=== PATIENT | female | born 2000 | race Caucasian/White ===

== ENCOUNTER 2023-07-14 19:02 | Emergency (ER) | payer OTHER, SELFPAY ==
[2023-07-14 19:16] VITALS: BP 135/80; PULSE 100; RESP 18; TEMP 36.5; O2SAT 100
--- NOTE | 2023-07-14 19:29 | ED.GENADULT ---
[facility] - General Adult General Chief complaint: Wound/Laceration Stated complaint: Left thumb laceration Time Seen by Provider: 07/14/23 19:16 Source: patient Mode of arrival: ambulatory Limitations: no limitations History of Present Illness HPI narrative: this is a 22-year-old female who presents to the ED with chief complaint of laceration to the left hand. She was cutting a box with a large knife today when it accidentally slipped and came back into the home /crease of the left hand between the thumb and index finger. Reports a lot of bleeding at that time. denies any further complaints Related Data Home Medications Medication Instructions Recorded Confirmed Daily 1 tab-cap PO DAILY 08/08/19 08/14/19 Allergies Allergy/AdvReac Type Severity Reaction Status Date / Time No Known Allergies Allergy Unknown Verified 07/14/23 19:03 Review of Systems Review of Systems: All systems as dictated in [facility] Social History Social History Smoking status: Never smoker Substance use: never Gender identity (if verbalized by the patient): Female Spiritual care concerns: No Exam Narrative: GENERAL: Well-appearing, well-nourished, and in no acute distress. HEAD: Normocephalic, atraumatic. EYES: PERRLA and EOMI. ENT: Nares clear, no rhinorrhea or epistaxis. Mucous membranes moist. Oropharynx without tonsillar hypertrophy exudate or other lesions. NECK: Supple. No adenopathy or masses. CHEST: No respiratory distress. Clear to auscultation. No wheezes rales or rhonchi HEART: Regular rate and rhythm. No murmur heard. Normal peripheral pulses. ABDOMEN: Soft, nontender, nondistended, normal active bowel sounds. MSK: Left hand: Unable to flex the thumb distally at the Interphalangeal joint. Sensation intact distally. Cap refill intact. Neurovascularly intact distally. Right hand benign. SKIN: There is a deep 5 cm laceration to the palmar aspect of the left thumb extending it into the crease in between thumb and index finger. There seems to be tendon involvement. NEURO: Alert and oriented x3. No focal deficits. PSYCH: Normal mood and affect. Course Course Emergency Course: consult Dr. Serna ([facility]): recommends keeping the thumb lac with loose approximation and placing a dorsal blocking splint. They will see her for follow-up in clinic. Vital Signs Vital signs: Vital Signs Temperature 97.7 F 07/14/23 19:16 Pulse Rate 100 07/14/23 19:16 Respiratory Rate 18 07/14/23 19:16 Blood Pressure 135/80 07/14/23 19:16 Pulse Oximetry 100 07/14/23 19:16 Oxygen Delivery Room Air 07/14/23 19:16 Temperature 97.7 F 07/14/23 19:16 Pulse Rate 87 07/14/23 22:03 Respiratory Rate 14 07/14/23 22:03 Blood Pressure 128/84 07/14/23 22:03 Pulse Oximetry 99 07/14/23 22:03 Oxygen Delivery Room Air 07/14/23 19:16 Procedures Laceration Laceration 1: Date: 07/14/23 Time: 21:00 Site: hand Side (If applicable): left Size (cm): 5 Description: linear Depth: involves tendon Local Anesthetic: lidocaine 1% Amount of anesthesia used (mL): 4 Pre-repair: wound explored and irrigated extensively ====== Skin Level ====== Skin layer closed with: nylon Size (cm): 5-0 Number of sutures: 5 Technique: simple, interrupted ====== Subcutaneous Layer ====== Subcutaneous layer closed with: vicryl Size: 4-0 Number of sutures: 1 Technique: simple, interrupted ====== Muscle Layer ====== ====== Tendon Layer ====== Dressing: nonadherent. Dorsal blocking splint placed. Orthopedic Splinting/Casting Injury #1: Splinting/Casting Date: 07/14/23 Splinting/Casting Time: 21:00 Side: left Upper Extremity Injury Location: hand Splint: customized in ED Pre-Formed: metal foam finger splint ( F
--- NOTE | 2023-07-14 21:00 | PC.NURSE ---
Pt states cut her left thumb [place] base with a knife while trying to open a box. continues to bleed. dressed in triage which is slowing it down some.
[2023-07-14] MEDS: LIDOCAINE HCL 1% LOCAL INJ 10 ML VIAL INFILTRATE (21:52)
[2023-07-14] MEDS: TETANUS,DIPHTHERIA,AC PERTUSSIS ADULT (0.5 ML) BOOSTRIX IM (21:55)
[2023-07-14 22:03] VITALS: BP 128/84; PULSE 87; RESP 14; O2SAT 99
== END 2023-07-14 22:05 | disposition home or self-care (01) ==
PROVIDERS: Emergency Provider Physician Assistant; PCP Family Medicine
DX: S66.022A Laceration of long flexor muscle, fascia and tendon of left thumb at wrist and hand level, initial encounter (principal); Z23 Encounter for immunization; W26.0XXA Contact with knife, initial encounter
CPT/HCPCS: 12042; 90471; 90715; 99283